=== PATIENT | female | born 1965 | race Two or more races ===

== ENCOUNTER 2022-12-18 07:23 | Day surgery (SDC) | payer OTHER ==
[~2022-12-18] VITALS: Ht 176.5 cm; Wt 75.3 kg
[~2022-12-18 07:23] MED LIST: CANABIS
== END 2022-12-18 14:30 | disposition home or self-care (01) ==
LOC: CIR.AMB 07:23
PROVIDERS: ATTEND Orthopaedic Surgery
DX: M75.32 Calcific tendinitis of left shoulder (principal); M25.812 Other specified joint disorders, left shoulder; M75.122 Complete rotator cuff tear or rupture of left shoulder, not specified as traumatic; Z20.822 Contact with and (suspected) exposure to COVID-19